=== PATIENT | male | born 1995 ===

== ENCOUNTER 2023-09-13 15:54 | Emergency (ER) | payer OTHER, SELFPAY ==
[2023-09-13 16:20] VITALS: BP 142/91; PULSE 71; RESP 18; TEMP 36.8; O2SAT 98
--- NOTE | 2023-09-13 16:51 | ED.GENADULT ---
[facility] General Adult General Chief complaint: Abdominal Pain Stated complaint: possible hernia Time Seen by Provider: 09/13/23 16:42 Source: patient Mode of arrival: ambulatory Limitations: no limitations History of Present Illness HPI narrative: This is a 28-year-old male who presents to the ED with chief complaint of left sided abdominal pain ongoing for several months. he states the area is only painful when he coughs. He admits to frequent marijuana use which causes him to cough and hurts his abdomen. He notices a bulge at times. Reports that it helps to put pressure on the bulging area when it is painful. Reports a recent which is worsened the pain. denies any skin changes, fevers, chills, nausea, vomiting, urinary problems or problems with bowel movements. Related Data Allergies Allergy/AdvReac Type Severity Reaction Status Date / Time No Known Allergies Allergy Mild Unverified 04/28/09 21:04 Review of Systems Review of Systems: All systems as dictated in [facility] Social History Social History Smoking status: Current every day smoker Alcohol intake: never Exam Narrative: GENERAL: Well-appearing, well-nourished, and in no acute distress. HEAD: Normocephalic, atraumatic. EYES: PERRLA and EOMI. ENT: Nares clear, no rhinorrhea or epistaxis. Mucous membranes moist. Oropharynx without tonsillar hypertrophy exudate or other lesions. NECK: Supple. No adenopathy or masses. CHEST: No respiratory distress. Clear to auscultation. No wheezes rales or rhonchi HEART: Regular rate and rhythm. No murmur heard. Normal peripheral pulses. ABDOMEN: Slight skin protrusion on the left side abdomen over the lateral abdominal wall muscles.. no tenderness. No overlying skin change. Soft, nontender, nondistended, normal active bowel sounds. MSK: Normal range of motion. No edema. SKIN: Warm, dry, no rash. NEURO: Alert and oriented x3. No focal deficits. PSYCH: Normal mood and affect. Course Vital Signs Vital signs: Vital Signs Temperature 98.2 F 09/13/23 16:20 Pulse Rate 71 09/13/23 16:20 Respiratory Rate 18 09/13/23 16:20 Blood Pressure 142/91 H 09/13/23 16:20 Pulse Oximetry 98 09/13/23 16:20 Oxygen Delivery Room Air 09/13/23 16:20 Temperature 98.2 F 09/13/23 16:20 Pulse Rate 71 09/13/23 16:20 Respiratory Rate 18 09/13/23 16:20 Blood Pressure 142/91 H 09/13/23 16:20 Pulse Oximetry 98 09/13/23 16:20 Oxygen Delivery Room Air 09/13/23 16:20 Medical Decision Making MDM Narrative Medical decision making narrative: This is a 28-year-old male presents to chief sided bulge and occasional pain ongoing chronically. He is here seeking answers as to what this could be today. Recent URI with cough has made his pain worse. Vitals are normal. there is a very minimal area of skin protrusion to the left lateral abdominal wall. No overlying skin changes or signs of acute abdomen. I discussed with the patient that this could be a hernia but it does not be appear to be emergent. he does not currently have any pain. We discussed the CT scan may be beneficial for diagnosis but also may not be able to pin down exactly what is causing this. I offered the scan today vs discharge with surgery clinic referral. He is electing to discharge home without any further workup per the ER like to with PCP and potentially surgery. In the guaifenesin prescribed for cough. Instructed to take Tylenol and ibuprofen. Return precautions given. He is understanding and agreeable to plan for discharge Vital Signs Vital Signs: Vital Signs Temperature 98.2 F 09/13/23 16:20 Pulse Rate 71 09/13/23 16:20 Respiratory Rate 18 09/13/23 16:20 Blood Pressure 142/91 H 09/13/23 16:20 Pulse Oximetry 98 09/13/23 16:20 Oxygen Delivery Room Air 09/13/23 16:20 Temperature 98.2 F 09/13/23 16:20 Pulse Rate 71 09/13/23 16:20 Respiratory Rate 18 09/13/23 16:20
== END 2023-09-13 17:21 | disposition home or self-care (01) ==
LOC: ANHED 17:11
PROVIDERS: Emergency Provider Physician Assistant
DX: R10.9 Unspecified abdominal pain (principal); F17.200 Nicotine dependence, unspecified, uncomplicated
CPT/HCPCS: 99283